=== PATIENT | male | born 1940 | race Caucasian/White ===

== ENCOUNTER 2018-07-18 08:57 | Emergency (ER) | payer MEDICARE ==
[~2018-07-18] VITALS: Ht 175.3 cm; Wt 98.9 kg
[~2018-07-18 08:57] MED LIST: CIPRO500 MG PO; CRANBERRY300 MG PO; LEVAQUIN 500 M500 M2 PO
[2018-07-18] MEDS ORDERED: CRANBERRY400 M1 PO (09:07)
[2018-07-18] MEDS ORDERED: KEFLEX500 M1 PO (09:59)
[2018-07-18] MEDS ORDERED: DIPHENHIST50 MG PO (09:59)
[2018-07-18 10:09] VITALS: BP 129/73
== END 2018-07-18 10:09 | disposition home or self-care (01) ==
LOC: M.ERS 08:57
DX: L73.9 Follicular disorder, unspecified (principal)

== ENCOUNTER 2018-08-04 12:05 | Emergency (ER) | payer MEDICARE ==
[~2018-08-04] VITALS: Ht 182.9 cm; Wt 96.3 kg
[~2018-08-04 12:05] MED LIST changes: +CRANBERRY400 M1 PO; +DIPHENHIST50 MG PO; +KEFLEX500 M1 PO
[2018-08-04 12:25] LABS: URINE BILIRUBIN NEGATIVE (Negative); URINE BLOOD TRACE (Negative); URINE CLARITY CLEAR; URINE COLOR YELLOW; URINE GLUCOSE-RANDOM NEGATIVE (Negative); URINE KETONES NEGATIVE (Negative); URINE LEUKOCYTES-REFLEX 1+ (Negative); URINE NITRITE-REFLEX POSITIVE (Negative); URINE PROTEIN NEGATIVE (Negative); URINE UROBILINOGEN 0.2 E.U./dl (0.2-1.0)
[2018-08-04 12:34] LABS: MUCUS 4-6 Moderate strn/LPF (None Seen); SQUAMOUS 0-3 Few /LPF (0-3); URINE RBC 0-2 Rare /HPF (0-2); URINE WBC-REFLEX 6-15 Few /HPF (0-5)
[2018-08-04] MEDS ORDERED: KEFLEX500 M1 PO (12:34)
[2018-08-04 12:35] LABS: CASTS None Seen /LPF (None Seen); CRYSTALS None Seen /LPF (None Seen)
[2018-08-04] MEDS ORDERED: BACTRIM DS TAB1 EACH PO (12:36)
[2018-08-04 12:39] LABS: ABSOLUTE EOSINOPHILS 0.2 thou/uL (0.0-0.7); ABSOLUTE LYMPHOCYTES 1.3 thou/uL (0.8-5.3); ABSOLUTE MONOCYTES 0.5 thou/uL (0.0-1.2); ABSOLUTE NEUTROPHILS 5.8 thou/uL (1.6-8.1); BASOPHILS 0.6 %; EOSINOPHILS 2.1 %; HEMATOCRIT 44.8 % (42.0-52.0); HEMOGLOBIN 15.3 gm/dL (14.0-18.0); LYMPHOCYTES 17.1 %; MCH 29.1 pg (26.0-34.0); MCHC 34.1 g/dL (28.0-37.0); MCV 85.3 fL (80.0-100.0); MONOCYTES 6.7 %; MPV 7.6 fl. (7.2-11.1); NUCLEATED RBCS 0 /100WBC; PLATELET COUNT* 223 thou/uL (150-400); POLYS 73.5 %; RBC 5.25 mil/uL (4.50-6.00); RDW-CV 14.3 % (10.5-14.5); WBC 7.8 thou/uL (4.0-11.0)
[2018-08-04 12:58] LABS: ANION GAP 6 mmol/L (7-16); BUN 17 mg/dL (7-18); CALCIUM 8.4 mg/dL (8.5-10.1); CHLORIDE 104 mmol/L (98-107); CO2 28 mmol/L (21-32); CREATININE 1.1 mg/dL (0.6-1.3); GLUCOSE 141 mg/dL (70-99); POTASSIUM 3.7 mmol/L (3.5-5.1); SODIUM 138 mmol/L (136-145)
[2018-08-04 13:00] LABS: TROPONIN-I LEVEL <0.06 ng/mL (<0.06)
[2018-08-04 13:15] VITALS: BP 131/63
--- NOTE | 2018-08-05 10:52 | EKG ---
[place] [address] ELECTROCARDIOGRAM REPORT Name: SUSANA ORNELAS Room: [facility]#: [id number] Admission: 08/04/18 Attend Phys: Discharge: 08/04/18 Date of : 40 Report #: [id number] THIS REPORT FOR: //name// [facility] ED Test Date: 2018-08-04 Test Time: 12:20:42 Pat Name: SUSANA ORNELAS Department: Room: Gender: M Manager Costing: : 1940 Requested By: Joselo Louie Order Number: [id number] Reading : Natalio Alves Measurements Intervals [place] Rate: 63 P: -12 TN: 153 QRS: 67 QRSD: 105 T: 25 QT: 403 QTc: 413 Interpretive Statements Sinus rhythm Compared to ECG 07/30/2016 15:51:33 No significant changes Electronically Signed On 08-05-2018 10:52:33 CDT by Natalio Alves [email or web address] <ELECTRONICALLY SIGNED> By: Natalio Alves MD, [facility] 08/05/18 1052 1220 1220 Natalio Alves MD, FACC /EPI
== END 2018-08-04 13:15 | disposition home or self-care (01) ==
LOC: M.ERS 12:05
PROVIDERS: Emergency Medicine Emergency Medical Services
DX: N39.0 Urinary tract infection, site not specified (principal)

== ENCOUNTER 2019-09-06 22:19 | Inpatient (IN) | payer MEDICARE ==
[~2019-09-06] VITALS: Ht 182.9 cm; Wt 97.5 kg
[~2019-09-06 22:19] MED LIST changes: +BACTRIM DS TAB1 EACH PO
[2019-09-06 22:27] VITALS: BP 190/96
[2019-09-06] MEDS ORDERED: FISH OIL 1,001000 M3 PO (22:38)
[2019-09-06 22:47] LABS: ABSOLUTE EOSINOPHILS 0.1 thou/uL (0.0-0.7); ABSOLUTE LYMPHOCYTES 0.9 thou/uL (0.8-5.3); ABSOLUTE MONOCYTES 0.7 thou/uL (0.0-1.2); ABSOLUTE NEUTROPHILS 9.6 thou/uL (1.6-8.1); BASOPHILS 0.4 %; EOSINOPHILS 0.8 %; HEMOGLOBIN 16.2 gm/dL (14.0-18.0); LYMPHOCYTES 7.7 %; MCH 28.1 pg (26.0-34.0); MCHC 33.7 g/dL (28.0-37.0); MCV 83.5 fL (80.0-100.0); MONOCYTES 6.5 %; NUCLEATED RBCS 0 /100WBC; PLATELET COUNT* 226 thou/uL (150-400); POLYS 84.6 %; RBC 5.75 mil/uL (4.50-6.00); RDW-CV 14.7 % (10.5-14.5); WBC 11.4 thou/uL (4.0-11.0)
[2019-09-06 22:54] LABS: CALCIUM 8.9 mg/dL (8.5-10.1); CREATININE 1.3 mg/dL (0.6-1.3); POTASSIUM 4.1 mmol/L (3.5-5.1)
[2019-09-06 22:59] LABS: ALBUMIN 3.4 g/dL (3.4-5.0); TOTAL BILIRUBIN 0.7 mg/dL (<0.1-1.0); TOTAL PROTEIN 7.4 g/dL (6.4-8.2)
[2019-09-06 23:18] LABS: URINE BILIRUBIN NEGATIVE (Negative); URINE BLOOD 3+ (Negative); URINE CLARITY CLEAR; URINE COLOR YELLOW; URINE GLUCOSE-RANDOM NEGATIVE (Negative); URINE KETONES NEGATIVE (Negative); URINE LEUKOCYTES-REFLEX 1+ (Negative); URINE PROTEIN TRACE (Negative); URINE SPECIFIC GRAVITY 1.025 (1.005-1.030); URINE UROBILINOGEN 0.2 E.U./dl (0.2-1.0)
[2019-09-06 23:23] LABS: URINE NITRITE-REFLEX POSITIVE (Negative)
[2019-09-06 23:28] LABS: BACTERIA-REFLEX >30 Many /HPF (None Seen); CASTS None Seen /LPF (None Seen); MUCUS 0-3 Light strn/LPF (None Seen); SQUAMOUS 0-3 Few /LPF (0-3); URINE RBC >20 Many /HPF (0-2); URINE WBC-REFLEX >25 Many /HPF (0-5)
[2019-09-06 23:29] LABS: URIC ACID CRYSTALS >10 Many /LPF (None Seen)
[2019-09-07 00:58] VITALS: BP 173/86
[2019-09-07 01:10] VITALS: BP 140/80
[2019-09-07 08:40] VITALS: BP 129/69
--- NOTE | 2019-09-07 11:25 | EKG ---
[place] [id number] ELECTROCARDIOGRAM REPORT Name: SUSANA ORNELAS Room: [address] ADM IN .R.#: [id number] Admission: 09/07/19 Attend Phys: Estevan Zapata Discharge: Date of : 40 Report #: [id number] THIS REPORT FOR: //name// [facility] ED Test Date: 2019-09-06 Test Time: 23:04:02 Pat Name: SUSANA ORNELAS Department: Room: [facility] Gender: M Preschool Paraprofessional: AJ : 1940 Requested By: Joselo Louie Order Number: [id number] MD: Mehrdad Pearce Measurements Intervals [place] Rate: 89 P: 31 [place]: 164 QRS: 56 QRSD: 143 T: -2 QT: 373 QTc: 454 Interpretive Statements Sinus rhythm Right bundle branch block Compared to ECG 08/04/2018 12:20:42 Right bundle-branch block now present Electronically Signed On 09-07-2019 11:25:22 CDT by Mehrdad Pearce [email or web address] <ELECTRONICALLY SIGNED> By: Mehrdad Pearce MD, [facility] 09/07/19 1125 2304 2304 Mehrdad Pearce MD, [facility] /EPI
[2019-09-07 17:12] VITALS: BP 115/67
[2019-09-07 20:00] VITALS: BP 127/69
[2019-09-08 08:04] VITALS: BP 132/69
[2019-09-08 15:07] LABS: ABSOLUTE EOSINOPHILS 0.3 thou/uL (0.0-0.7); ABSOLUTE LYMPHOCYTES 1.1 thou/uL (0.8-5.3); ABSOLUTE MONOCYTES 0.6 thou/uL (0.0-1.2); ABSOLUTE NEUTROPHILS 2.7 thou/uL (1.6-8.1); BASOPHILS 0.5 %; EOSINOPHILS 6.6 %; HEMATOCRIT 40.2 % (42.0-52.0); HEMOGLOBIN 13.3 gm/dL (14.0-18.0); LYMPHOCYTES 22.8 %; MCH 27.9 pg (26.0-34.0); MCV 84.4 fL (80.0-100.0); MONOCYTES 12.1 %; MPV 8.1 fl. (7.2-11.1); NUCLEATED RBCS 0 /100WBC; PLATELET COUNT* 175 thou/uL (150-400); RBC 4.77 mil/uL (4.50-6.00); RDW-CV 14.5 % (10.5-14.5); WBC 4.7 thou/uL (4.0-11.0)
[2019-09-08 15:20] LABS: ALBUMIN 2.6 g/dL (3.4-5.0); CALCIUM 7.9 mg/dL (8.5-10.1); CREATININE 1.2 mg/dL (0.6-1.3); TOTAL BILIRUBIN 0.5 mg/dL (<0.1-1.0); TOTAL PROTEIN 5.9 g/dL (6.4-8.2)
[2019-09-08 17:12] VITALS: BP 141/72
[2019-09-09] VITALS: BP 110/51
[2019-09-09 05:01] LABS: HEMATOCRIT 38.7 % (42.0-52.0); HEMOGLOBIN 12.7 gm/dL (14.0-18.0); MCH 27.9 pg (26.0-34.0); MCHC 32.8 g/dL (28.0-37.0); MPV 8.2 fl. (7.2-11.1); RBC 4.56 mil/uL (4.50-6.00); RDW-CV 14.6 % (10.5-14.5); WBC 5.5 thou/uL (4.0-11.0)
[2019-09-09 05:47] LABS: POTASSIUM 3.6 mmol/L (3.5-5.1)
[2019-09-09 06:46] LABS: CALCIUM 7.8 mg/dL (8.5-10.1); CREATININE 1.1 mg/dL (0.6-1.3)
[2019-09-09 08:10] VITALS: BP 108/52
[2019-09-09 16:00] VITALS: BP 133/61
[2019-09-09 20:00] VITALS: BP 144/61
[2019-09-10 07:20] VITALS: BP 128/67
[2019-09-10 15:48] VITALS: BP 162/69
[2019-09-11 04:41] VITALS: BP 125/62
[2019-09-11 07:40] VITALS: BP 145/63
[2019-09-11 10:59] VITALS: BP 145/63
[2019-09-11] MEDS ORDERED: CULTURELLE KID1 EAC1 PO (11:01)
[2019-09-11] MEDS ORDERED: AUGMENTIN 500-1 EACH PO (11:02)
== END 2019-09-11 11:20 | disposition home or self-care (01) | DRG 388 ==
LOC: M.ERS 22:19 → M.3W 09-07 00:14 → M.TBA-ER 09-07 00:14 → M.3W 09-07 01:31
PROVIDERS: Emergency Medicine Emergency Medical Services; Family Medicine; ADMIT Internal Medicine
DX: K56.600 Partial intestinal obstruction, unspecified as to cause (principal); E43 Unspecified severe protein-calorie malnutrition; N39.0 Urinary tract infection, site not specified; E87.8 Other disorders of electrolyte and fluid balance, not elsewhere classified; Z93.6 Other artificial openings of urinary tract status; Z79.899 Other long term (current) drug therapy; Z68.29 Body mass index [BMI] 29.0-29.9, adult

== ENCOUNTER 2020-12-07 22:04 | Inpatient (IN) | payer MEDICARE ==
[~2020-12-07] VITALS: Ht 182.9 cm; Wt 98.9 kg
[~2020-12-07 22:04] MED LIST changes: +AUGMENTIN 500-1 EACH PO; +CULTURELLE KID1 EAC1 PO; +FISH OIL 1,001000 M3 PO
[2020-12-07 22:10] VITALS: BP 142/69
[2020-12-07] MEDS ORDERED: OSTERA TABLET1 EAC1 PO (22:14)
[2020-12-07] MEDS ORDERED: PREVAGEN PO (22:15)
[2020-12-07 22:34] LABS: ABSOLUTE EOSINOPHILS 0.1 thou/uL (0.0-0.7); ABSOLUTE LYMPHOCYTES 1.1 thou/uL (0.8-5.3); ABSOLUTE MONOCYTES 1.1 thou/uL (0.0-1.2); ABSOLUTE NEUTROPHILS 9.4 thou/uL (1.6-8.1); BASOPHILS 0.4 %; EOSINOPHILS 0.9 %; HEMATOCRIT 47.5 % (42.0-52.0); HEMOGLOBIN 15.8 gm/dL (14.0-18.0); LYMPHOCYTES 9.7 %; MCH 28.5 pg (26.0-34.0); MCHC 33.4 g/dL (28.0-37.0); MCV 85.4 fL (80.0-100.0); MONOCYTES 9.2 %; MPV 7.8 fl. (7.2-11.1); NUCLEATED RBCS 0 /100WBC; PLATELET COUNT* 238 thou/uL (150-400); POLYS 79.8 %; RBC 5.56 mil/uL (4.50-6.00); RDW-CV 14.1 % (10.5-14.5); WBC 11.7 thou/uL (4.0-11.0)
[2020-12-07 22:38] LABS: CALCIUM 8.8 mg/dL (8.5-10.1); CREATININE 1.2 mg/dL (0.6-1.3)
[2020-12-07 22:42] LABS: ALBUMIN 3.4 g/dL (3.4-5.0); TOTAL BILIRUBIN 0.8 mg/dL (<0.1-1.0); TOTAL PROTEIN 7.2 g/dL (6.4-8.2)
[2020-12-07 22:52] LABS: URINE BILIRUBIN NEGATIVE (Negative); URINE BLOOD 1+ (Negative); URINE CLARITY CLEAR; URINE COLOR YELLOW; URINE GLUCOSE-RANDOM NEGATIVE (Negative); URINE KETONES TRACE (Negative); URINE PROTEIN NEGATIVE (Negative); URINE UROBILINOGEN 0.2 E.U./dl (0.2-1.0)
[2020-12-07 22:55] LABS: URINE LEUKOCYTES-REFLEX 3+ (Negative); URINE NITRITE-REFLEX POSITIVE (Negative)
[2020-12-07 23:03] LABS: SQUAMOUS 0-3 Few /LPF (0-3)
[2020-12-07 23:04] LABS: BACTERIA-REFLEX >30 Many /HPF (None Seen); CASTS None Seen /LPF (None Seen); URINE RBC 3-10 Few /HPF (0-2); URINE WBC-REFLEX 6-15 Few /HPF (0-5)
[2020-12-07 23:05] LABS: CRYSTALS None Seen /LPF (None Seen)
[2020-12-07] MEDS ORDERED: VITAMIN C100 MG PO (23:07)
[2020-12-07] MEDS ORDERED: ECHINACEA (23:09)
[2020-12-08 02:00] VITALS: BP 148/82; BP 157/86
[2020-12-08 02:05] VITALS: BP 157/86
[2020-12-08 07:40] VITALS: BP 104/71
[2020-12-08 16:04] VITALS: BP 145/65
[2020-12-08 19:50] VITALS: BP 135/63
[2020-12-09 05:20] LABS: ABSOLUTE EOSINOPHILS 0.1 thou/uL (0.0-0.7); ABSOLUTE LYMPHOCYTES 1.4 thou/uL (0.8-5.3); ABSOLUTE MONOCYTES 0.8 thou/uL (0.0-1.2); ABSOLUTE NEUTROPHILS 4.4 thou/uL (1.6-8.1); BASOPHILS 0.4 %; EOSINOPHILS 2.2 %; HEMATOCRIT 39.5 % (42.0-52.0); LYMPHOCYTES 20.7 %; MCH 28.5 pg (26.0-34.0); MCHC 33.6 g/dL (28.0-37.0); MCV 84.9 fL (80.0-100.0); MONOCYTES 12.4 %; MPV 7.7 fl. (7.2-11.1); NUCLEATED RBCS 0 /100WBC; PLATELET COUNT* 210 thou/uL (150-400); POLYS 64.3 %; RBC 4.65 mil/uL (4.50-6.00); WBC 6.8 thou/uL (4.0-11.0)
[2020-12-09 05:22] LABS: CALCIUM 7.6 mg/dL (8.5-10.1); CREATININE 1.1 mg/dL (0.6-1.3); POTASSIUM 3.7 mmol/L (3.5-5.1)
[2020-12-09 05:27] LABS: HEMOGLOBIN 13.3 gm/dL (14.0-18.0)
[2020-12-09 08:15] VITALS: BP 124/64
[2020-12-09 15:45] VITALS: BP 150/66
[2020-12-09 21:00] VITALS: BP 149/71
[2020-12-10 07:20] VITALS: BP 127/62
[2020-12-10 11:45] LABS: ABSOLUTE EOSINOPHILS 0.1 thou/uL (0.0-0.7); ABSOLUTE MONOCYTES 0.7 thou/uL (0.0-1.2); ABSOLUTE NEUTROPHILS 6.9 thou/uL (1.6-8.1); BASOPHILS 0.5 %; EOSINOPHILS 1.6 %; HEMOGLOBIN 13.8 gm/dL (14.0-18.0); LYMPHOCYTES 11.8 %; MCH 28.5 pg (26.0-34.0); MCHC 32.9 g/dL (28.0-37.0); MCV 86.5 fL (80.0-100.0); MONOCYTES 7.6 %; MPV 7.6 fl. (7.2-11.1); NUCLEATED RBCS 0 /100WBC; PLATELET COUNT* 255 thou/uL (150-400); POLYS 78.5 %; RBC 4.85 mil/uL (4.50-6.00); RDW-CV 13.6 % (10.5-14.5); WBC 8.8 thou/uL (4.0-11.0)
[2020-12-10 11:53] LABS: CALCIUM 8.8 mg/dL (8.5-10.1); CREATININE 1.1 mg/dL (0.6-1.3); POTASSIUM 3.7 mmol/L (3.5-5.1)
[2020-12-10 15:40] VITALS: BP 139/69
[2020-12-10 20:00] VITALS: BP 148/58
[2020-12-11 05:09] LABS: ABSOLUTE BASOPHILS 0.1 thou/uL (0.0-0.2); ABSOLUTE EOSINOPHILS 0.2 thou/uL (0.0-0.7); ABSOLUTE LYMPHOCYTES 1.6 thou/uL (0.8-5.3); ABSOLUTE MONOCYTES 0.8 thou/uL (0.0-1.2); ABSOLUTE NEUTROPHILS 6.1 thou/uL (1.6-8.1); BASOPHILS 0.9 %; EOSINOPHILS 2.2 %; HEMATOCRIT 34.6 % (42.0-52.0); MCH 28.6 pg (26.0-34.0); MCHC 33.8 g/dL (28.0-37.0); MCV 84.4 fL (80.0-100.0); MONOCYTES 8.7 %; MPV 7.4 fl. (7.2-11.1); NUCLEATED RBCS 0 /100WBC; PLATELET COUNT* 225 thou/uL (150-400); POLYS 70.2 %; RDW-CV 13.8 % (10.5-14.5); WBC 8.7 thou/uL (4.0-11.0)
[2020-12-11 05:12] LABS: HEMOGLOBIN 11.7 gm/dL (14.0-18.0)
[2020-12-11 05:38] LABS: CALCIUM 7.8 mg/dL (8.5-10.1); PHOSPHORUS* 1.9 mg/dL (2.5-4.9); POTASSIUM 3.2 mmol/L (3.5-5.1)
[2020-12-11 07:18] VITALS: BP 114/58
[2020-12-11 08:40] VITALS: BP 114/58
[2020-12-11 13:08] VITALS: BP 114/58
== END 2020-12-11 13:08 | disposition home or self-care (01) | DRG 389 ==
LOC: M.ERS 22:04 → M.3W 12-08 01:03 → M.TBA-ER 12-08 01:03 → M.3W 12-08 02:03
PROVIDERS: Emergency Medicine; Surgery; ADMIT Internal Medicine; ATTEND Internal Medicine
PROC: 0D9670Z Drainage of Stomach with Drainage Device, Via Natural or Artificial Opening (ICD-10-PCS; principal; 2020-12-08)
DX: K56.50 Intestinal adhesions [bands], unspecified as to partial versus complete obstruction (principal); R65.10 Systemic inflammatory response syndrome (SIRS) of non-infectious origin without acute organ dysfunction; N30.00 Acute cystitis without hematuria; K59.00 Constipation, unspecified; Z20.822 Contact with and (suspected) exposure to COVID-19; Z90.49 Acquired absence of other specified parts of digestive tract; Z85.51 Personal history of malignant neoplasm of bladder; Z90.6 Acquired absence of other parts of urinary tract; Z79.899 Other long term (current) drug therapy

== ENCOUNTER → 2021-07-04 | Outpatient (CLI) | payer MEDICARE ==
[~2021-07-04] MED LIST changes: +ECHINACEA; +OSTERA TABLET1 EAC1 PO; +PREVAGEN PO; +VITAMIN C100 MG PO
[2021-07-04 06:56] LABS: ABSOLUTE EOSINOPHILS 0.3 thou/uL (0.0-0.7); ABSOLUTE LYMPHOCYTES 1.5 thou/uL (0.8-5.3); ABSOLUTE MONOCYTES 0.8 thou/uL (0.0-1.2); ABSOLUTE NEUTROPHILS 4.3 thou/uL (1.6-8.1); BASOPHILS 0.7 %; EOSINOPHILS 4.4 %; HEMATOCRIT 45.1 % (42.0-52.0); HEMOGLOBIN 15.1 gm/dL (14.0-18.0); MCH 28.3 pg (26.0-34.0); MCHC 33.4 g/dL (28.0-37.0); MCV 84.7 fL (80.0-100.0); MONOCYTES 10.9 %; MPV 7.3 fl. (7.2-11.1); NUCLEATED RBCS 0 /100WBC; PLATELET COUNT* 255 thou/uL (150-400); RBC 5.32 mil/uL (4.50-6.00); WBC 6.9 thou/uL (4.0-11.0)
[2021-07-04 07:08] LABS: ALBUMIN 3.6 g/dL (3.4-5.0); CALCIUM 8.6 mg/dL (8.5-10.1); CREATININE 1.3 mg/dL (0.6-1.3); POTASSIUM 4.2 mmol/L (3.5-5.1); TOTAL BILIRUBIN 0.6 mg/dL (<0.1-1.0); TOTAL PROTEIN 7.4 g/dL (6.4-8.2)
== END ==
LOC: M.LAB 06:29 → M.CT 08:00
PROVIDERS: ATTEND Internal Medicine Gastroenterology
DX: K63.89 Other specified diseases of intestine (principal); I70.0 Atherosclerosis of aorta; K43.9 Ventral hernia without obstruction or gangrene; K57.30 Diverticulosis of large intestine without perforation or abscess without bleeding; D17.79 Benign lipomatous neoplasm of other sites; K62.89 Other specified diseases of anus and rectum; Z85.46 Personal history of malignant neoplasm of prostate; Z85.51 Personal history of malignant neoplasm of bladder